=== PATIENT | male | born 1950 | race Two or more races ===

== ENCOUNTER 2019-08-01 23:42 | Inpatient (IN) | payer MEDICAID, MEDICARE ==
[~2019-08-01] VITALS: Ht 165.1 cm; Wt 70.3 kg
[2019-08-02] VITALS (21 sets, daily range): BP systolic 74–187; BP diastolic 34–100
[2019-08-02] MEDS ORDERED: CALC667T6 PO (00:07)
[2019-08-02] MEDS ORDERED: NAPR-1164 PO (00:07)
[2019-08-02] MEDS ORDERED: FERR325T28 PO (00:07)
[2019-08-02] MEDS ORDERED: FLUO-120 PO (00:07)
[2019-08-02] MEDS ORDERED: CEPH-570 PO (00:07)
[2019-08-02] MEDS ORDERED: CLON0.1T PO (00:07)
[2019-08-02] MEDS ORDERED: AMLO10TA7 PO (00:07)
[2019-08-02] MEDS ORDERED: ATOR20TA PO (00:07)
[2019-08-02] MEDS ORDERED: ATEN50TA PO (00:07)
[2019-08-02] MEDS ORDERED: DICYCLOMINE HCL 20 MG/2 ML AMPUL IM SCH (00:15)
[2019-08-02] MEDS ORDERED: IV NORMAL SALINE 1000 ML BAG IV ONE (00:15)
[2019-08-02] MEDS ORDERED: ONDANSETRON 4 MG/2 ML VIAL IV ONE (00:15)
[2019-08-02 00:26] LABS: BASOPHILS # (AUTO) 0.1 K/uL (0.0-8.0); NEUTROPHILS # (AUTO) 5.8 K/uL (1.8-8.9); WHITE BLOOD COUNT (AUTO) 13.8 K/uL (3.6-10.2)
[2019-08-02 00:28] LABS: BASOPHILS % (AUTO) 0.6 % (0.0-2.0); EOSINOPHILS # (AUTO) 0.2 K/uL (0.0-0.7); EOSINOPHILS % (AUTO) 1.1 % (0.0-7.0); LYMPHOCYTES # (AUTO) 6.6 K/uL (20.0-40.0); LYMPHOCYTES % (AUTO) 47.7 % (20.5-51.5); MEAN CORPUSCULAR HGB CONC 32 g/dL (32.5-36.3); MEAN CORPUSCULAR VOLUME 98.6 fL (73.0-96.2); MONOCYTES # (AUTO) 1.2 K/uL (2.0-10.0); MONOCYTES % (AUTO) 8.5 % (0.0-11.0); NEUTROPHILS % (AUTO) 42.1 % (38.5-71.5); PLATELET COUNT (AUTO) 88 K/uL (152-348)
[2019-08-02 00:30] LABS: *OCCULT BLOOD STOOL POSITIVE (NEGATIVE)
[2019-08-02 00:34] LABS: RED BLOOD CELL COUNT(AUTO) 1.43 MIL/uL (4.06-5.63)
[2019-08-02 00:35] LABS: HEMOGLOBIN 4.6 g/dL (12.5-16.3)
[2019-08-02 00:36] LABS: HEMATOCRIT 14.1 % (36.7-47.1)
[2019-08-02 00:46] LABS: BILIRUBIN,DIRECT 0.3 mg/dL (0.0-0.2); BILIRUBIN,TOTAL 1.1 mg/dL (0.2-1.0); CREATININE 7.6 mg/dL (0.6-1.3); TOTAL PROTEIN, SERUM 5.6 g/dL (6.4-8.2)
[2019-08-02 00:49] LABS: POTASSIUM 7.2 mmol/L (3.5-5.1)
[2019-08-02] MEDS ORDERED: SODIUM BICARBONATE 8.4% 50 MEQ/50 ML DISP.SYRIN IV ONE ×2 (01:00→01:35)
[2019-08-02] MEDS ORDERED: FUROSEMIDE 20 MG/2 ML VIAL IVP ONE (01:00)
[2019-08-02] MEDS ORDERED: SODIUM POLYSTYRENE SULFONATE 15 G/60 ML LIQUID UDC PO ONE (01:00)
[2019-08-02] MEDS ORDERED: METOCLOPRAMIDE HCL 10 MG/2 ML VIAL ONE (01:06)
[2019-08-02 01:07] LABS: *BILIRUBIN,URIN 1+ (NEGATIVE); *BLOOD, URINE NEGATIVE (NEGATIVE); *CLARITY,URINE CLEAR (CLEAR); *COLOR,URINE YELLOW (YELLOW); *KETONES,URINE NEGATIVE (NEGATIVE); *UROBILINOGEN,URINE 0.2 E.U./dl (NORMAL); LEUKOCYTE ESTERASE ,URINE TRACE (NEGATIVE); NITRITE, URINE POSITIVE (NEGATIVE); PH,URINE >=9.0 (5.0-8.0); UGLUCOSE NEGATIVE (NEGATIVE)
[2019-08-02] MEDS ORDERED: INSULIN REGULAR, HUMAN 300 UNIT/3 ML VIAL IV ONE (01:15)
[2019-08-02] MEDS ORDERED: METOCLOPRAMIDE HCL 10 MG/2 ML VIAL IM ONE (01:15)
[2019-08-02] MEDS ORDERED: DEXTROSE 50% 50 ML DISP.SYRIN IV ONE (01:15)
[2019-08-02 01:24] LABS: BACTERIA,URINE MANY /HPF (NONE SEEN); RBC,URINE NONE SEEN /HPF (0-3); SQUAMOUS EPITHELIAL CELL,UR NONE SEEN /HPF (NONE SEEN); TRIPLE PHOSPHATE CRYSTAL,UR MANY /HPF (NONE SEEN)
[2019-08-02] MEDS ORDERED: Z GUARD REMEDY PASTE 57 GM TUBE TOP PRN (01:30)
[2019-08-02] MEDS ORDERED: PANTOPRAZOLE SODIUM IV 80 MG in IV DEXTROSE 5% 100 ML IV ONE (01:30)
[2019-08-02] MEDS ORDERED: ACETAMINOPHEN 325 MG TABLET PO PRN (01:30)
[2019-08-02] MEDS ORDERED: MAGNESIUM HYDROXIDE 30 ML LIQUID UDC PO PRN (01:30)
[2019-08-02] MEDS ORDERED: ONDANSETRON 4 MG/2 ML VIAL IV PRN (01:30)
[2019-08-02] MEDS ORDERED: PANTOPRAZOLE SODIUM 40 MG VIAL ONE (01:34)
[2019-08-02] MEDS ORDERED: FUROSEMIDE 40 MG/4 ML VIAL ONE (01:34)
[2019-08-02] MEDS ORDERED: DEXTROSE 50% 50 ML DISP.SYRIN ONE (01:35)
[2019-08-02] MEDS ORDERED: SODIUM POLYSTYRENE SULF POWDER 15 GM UDC ONE (01:35)
[2019-08-02] MEDS ORDERED: DICYCLOMINE HCL LIQ 10 MG/5 ML UDC ONE (01:35)
[2019-08-02] MEDS ORDERED: INSULIN REGULAR, HUMAN 300 UNIT/3 ML VIAL ONE (01:35)
[2019-08-02 02:06] LABS: BAND % (MANUAL) 1 % (0-10); LYMPHOCYTES % (MANUAL) 41 % (20-40); MONOCYTES % (MANUAL) 3 % (2-10); NEUTROPHILS % (MANUAL) 55 % (42-75)
[2019-08-02] MEDS ORDERED: DICYCLOMINE HCL LIQ 10 MG/5 ML UDC PO ONE (02:15)
[2019-08-02] MEDS ORDERED: LEVOFLOXACIN 500 MG/D5W 100ML PIGGYBACK IV ONE (02:30)
[2019-08-02] MEDS ORDERED: LEVOFLOXACIN 500 MG/D5W 100 ML ONE (02:40)
[2019-08-02] MEDS ORDERED: HYDROMORPHONE 1 MG/1 ML DISP.SYRIN ONE (03:44)
[2019-08-02] MEDS ORDERED: HYDROMORPHONE 1 MG/1 ML DISP.SYRIN IV ONE (03:45)
[2019-08-02 03:49] LABS: BASOPHILS # (AUTO) 0.1 K/uL (0.0-8.0); EOSINOPHILS # (AUTO) 0.1 K/uL (0.0-0.7); MEAN CORPUSCULAR VOLUME 98.2 fL (73.0-96.2); NEUTROPHILS # (AUTO) 5.7 K/uL (1.8-8.9)
[2019-08-02 03:51] LABS: BASOPHILS % (AUTO) 0.5 % (0.0-2.0); EOSINOPHILS % (AUTO) 0.5 % (0.0-7.0); LYMPHOCYTES # (AUTO) 5.5 K/uL (20.0-40.0); LYMPHOCYTES % (AUTO) 44.7 % (20.5-51.5); MEAN CORPUSCULAR HEMOGLOBIN 31.2 uug (23.8-33.4); MEAN CORPUSCULAR HGB CONC 32 g/dL (32.5-36.3); MONOCYTES % (AUTO) 7.8 % (0.0-11.0); NEUTROPHILS % (AUTO) 46.5 % (38.5-71.5); PLATELET COUNT (AUTO) 67 K/uL (152-348); RED BLOOD CELL COUNT(AUTO) 1.14 MIL/uL (4.06-5.63); WHITE BLOOD COUNT (AUTO) 12.3 K/uL (3.6-10.2)
[2019-08-02 03:53] LABS: HEMATOCRIT 11.2 % (36.7-47.1); HEMOGLOBIN 3.6 g/dL (12.5-16.3)
[2019-08-02 03:59] LABS: POTASSIUM 5.3 mmol/L (3.5-5.1)
[2019-08-02 04:03] LABS: CREATININE 7.7 mg/dL (0.6-1.3)
[2019-08-02] MEDS ORDERED: PROPOFOL 200 MG/20 ML BOTTLE IV ONE (06:38)
[2019-08-02] MEDS ORDERED: LIDOCAINE-MPF 2% 5 ML VIAL MC ONE (06:38)
[2019-08-02] MEDS ORDERED: SIMETHICONE 40 MG/0.6 ML, 30ML BOTTLE MC ONE (06:38)
[2019-08-02] MEDS: PANTOPRAZOLE SODIUM 40 MG VIAL IV SCH ×2 (10:16→17:03)
[2019-08-02] MEDS ORDERED: DEXTROSE 50% 50 ML DISP.SYRIN IV PRN (12:00)
[2019-08-02] MEDS: BLOOD SUGAR DIAGNOSTIC 1 EACH STRIP VI SCH ×2 (12:37→17:35)
[2019-08-02] MEDS ORDERED: CEFTRIAXONE 1 G in IV DEXTROSE 5% 50 ML IV SCH (13:00)
[2019-08-02] MEDS ORDERED: FENTANYL CITRATE 100 MCG/2 ML AMPUL ONE (13:12)
[2019-08-02 13:24] LABS: MONOCYTES # (AUTO) 1.2 K/uL (2.0-10.0); PLATELET COUNT (AUTO) 80 K/uL (152-348)
[2019-08-02] MEDS: OCTREOTIDE ACETATE DRIP 1,250 MCG in IV NORMAL SALINE 247.5 ML IV PRN (13:26)
[2019-08-02 13:30] LABS: BASOPHILS % (AUTO) 0.4 % (0.0-2.0); EOSINOPHILS % (AUTO) 0.3 % (0.0-7.0); LYMPHOCYTES # (AUTO) 3.2 K/uL (20.0-40.0); LYMPHOCYTES % (AUTO) 33.3 % (20.5-51.5); MEAN CORPUSCULAR HEMOGLOBIN 29.6 uug (23.8-33.4); MEAN CORPUSCULAR HGB CONC 34 g/dL (32.5-36.3); MEAN CORPUSCULAR VOLUME 87.9 fL (73.0-96.2); MONOCYTES % (AUTO) 12.4 % (0.0-11.0); NEUTROPHILS # (AUTO) 5.1 K/uL (1.8-8.9); NEUTROPHILS % (AUTO) 53.6 % (38.5-71.5); RED BLOOD CELL COUNT(AUTO) 2.78 MIL/uL (4.06-5.63); WHITE BLOOD COUNT (AUTO) 9.6 K/uL (3.6-10.2)
[2019-08-02 13:31] LABS: HEMATOCRIT 24.4 % (36.7-47.1); HEMOGLOBIN 8.2 g/dL (12.5-16.3)
[2019-08-02 13:42] LABS: BILIRUBIN,TOTAL 0.9 mg/dL (0.2-1.0); CREATININE 4.3 mg/dL (0.6-1.3); POTASSIUM 4.4 mmol/L (3.5-5.1); TOTAL PROTEIN, SERUM 4.9 g/dL (6.4-8.2)
[2019-08-02 14:07] LABS: IRON, SERUM 167 ug/dL (50-175)
[2019-08-02 14:51] LABS: FERRITIN > 2000 ng/mL (26-388)
[2019-08-02] MEDS ORDERED: IV NS 1000 ML 1,000 ML IV PRN (16:15)
[2019-08-02] MEDS: SUCRALFATE 1 G TABLET PO SCH ×2 (17:00→21:13)
[2019-08-02] MEDS: AMLODIPINE 10 MG TABLET PO SCH (18:22)
[2019-08-02] MEDS: ATENOLOL 50 MG TABLET PO SCH (18:23)
[2019-08-02] MEDS: LEVOFLOXACIN 250MG /D5W 250 MG in PREMIXED 1 EACH IV SCH (20:39)
[2019-08-02] MEDS ORDERED: VANCOMYCIN IV 1,000 MG in IV DEXTROSE 5% 250 ML IV ONE (21:00)
[2019-08-02] MEDS: ATORVASTATIN 20 MG TABLET PO SCH (21:47)
[2019-08-02] MEDS: CLONIDINE HCL 0.1 MG TABLET PO SCH (22:07)
[2019-08-03] VITALS (16 sets, daily range): BP systolic 14–149; BP diastolic 46–85
[2019-08-03] MEDS: BLOOD SUGAR DIAGNOSTIC 1 EACH STRIP VI SCH ×4 (00:29→17:24)
[2019-08-03] MEDS ORDERED: INSULIN REGULAR, HUMAN 300 UNIT/3 ML VIAL ONE (00:44)
[2019-08-03] MEDS: INSULIN REGULAR, HUMAN 300 UNIT/3 ML VIAL SQ PRN ×3 (00:49→17:01)
[2019-08-03 05:03] LABS: EOSINOPHILS # (AUTO) 0.2 K/uL (0.0-0.7); MEAN CORPUSCULAR HGB CONC 33 g/dL (32.5-36.3); MONOCYTES # (AUTO) 1.1 K/uL (2.0-10.0)
[2019-08-03 05:06] LABS: BASOPHILS # (AUTO) 0.1 K/uL (0.0-8.0); BASOPHILS % (AUTO) 0.6 % (0.0-2.0); HEMATOCRIT 21.4 % (36.7-47.1); LYMPHOCYTES # (AUTO) 4.3 K/uL (20.0-40.0); LYMPHOCYTES % (AUTO) 44.8 % (20.5-51.5); MONOCYTES % (AUTO) 11.9 % (0.0-11.0); NEUTROPHILS # (AUTO) 3.9 K/uL (1.8-8.9); NEUTROPHILS % (AUTO) 40.7 % (38.5-71.5); PLATELET COUNT (AUTO) 79 K/uL (152-348); WHITE BLOOD COUNT (AUTO) 9.6 K/uL (3.6-10.2)
[2019-08-03 05:16] LABS: HEMOGLOBIN 7.1 g/dL (12.5-16.3); RED BLOOD CELL COUNT(AUTO) 2.46 MIL/uL (4.06-5.63)
[2019-08-03 05:19] LABS: CREATININE 5.4 mg/dL (0.6-1.3); MAGNESIUM 2.1 mg/dL (1.8-2.4); PHOSPHOROUS 4.6 mg/dL (2.5-4.9); POTASSIUM 4.5 mmol/L (3.5-5.1)
[2019-08-03 05:24] LABS: THYROID STIMULATING HORMONE 3.77 mIU/mL (0.358-3.740)
[2019-08-03 06:06] LABS: HEPATITIS B SURFACE AG Negative (Negative)
[2019-08-03] MEDS: SUCRALFATE 1 G TABLET PO SCH ×4 (07:56→20:47)
[2019-08-03] MEDS: CLONIDINE HCL 0.1 MG TABLET PO SCH (08:03)
[2019-08-03] MEDS: PANTOPRAZOLE SODIUM 40 MG VIAL IV SCH ×2 (08:03→16:57)
[2019-08-03] MEDS: ATENOLOL 50 MG TABLET PO SCH ×2 (08:04→16:55)
[2019-08-03] MEDS: AMLODIPINE 10 MG TABLET PO SCH (08:05)
[2019-08-03] MEDS: FERROUS SULFATE 325 MG TABEC PO SCH (08:09)
[2019-08-03] MEDS: FLUOXETINE HCL 20 MG CAPSULE PO SCH (08:10)
[2019-08-03] MEDS: CALCIUM ACETATE 667 MG CAPSULE PO SCH ×3 (08:10→17:02)
[2019-08-03] MEDS ORDERED: AMLODIPINE 10 MG TABLET PO SCH (09:00)
[2019-08-03] MEDS ORDERED: ATENOLOL 50 MG TABLET PO SCH (09:00)
[2019-08-03] MEDS: OCTREOTIDE ACETATE DRIP 1,250 MCG in IV NORMAL SALINE 247.5 ML IV PRN (12:02)
[2019-08-03] MEDS ORDERED: VANCOMYCIN IV 1,000 MG in IV DEXTROSE 5% 250 ML IV ONE (14:30)
[2019-08-03 15:52] LABS: HEMATOCRIT 21.2 % (36.7-47.1)
[2019-08-03] MEDS: IV NORMAL SALINE 250 ML IV PRN (17:39)
[2019-08-03] MEDS: ATORVASTATIN 20 MG TABLET PO SCH (20:47)
[2019-08-04] VITALS (17 sets, daily range): BP systolic 118–164; BP diastolic 51–76
[2019-08-04] MEDS: BLOOD SUGAR DIAGNOSTIC 1 EACH STRIP VI SCH ×5 (00:10→23:44)
[2019-08-04 05:08] LABS: BASOPHILS % (AUTO) 0.5 % (0.0-2.0); EOSINOPHILS # (AUTO) 0.3 K/uL (0.0-0.7); LYMPHOCYTES # (AUTO) 4.6 K/uL (20.0-40.0)
[2019-08-04 05:10] LABS: EOSINOPHILS % (AUTO) 2.7 % (0.0-7.0); LYMPHOCYTES % (AUTO) 47.1 % (20.5-51.5); MEAN CORPUSCULAR HEMOGLOBIN 29.5 uug (23.8-33.4); MEAN CORPUSCULAR HGB CONC 33 g/dL (32.5-36.3); MEAN CORPUSCULAR VOLUME 88.6 fL (73.0-96.2); MONOCYTES % (AUTO) 10.5 % (0.0-11.0); NEUTROPHILS # (AUTO) 3.8 K/uL (1.8-8.9); NEUTROPHILS % (AUTO) 39.2 % (38.5-71.5); PLATELET COUNT (AUTO) 64 K/uL (152-348); WHITE BLOOD COUNT (AUTO) 9.7 K/uL (3.6-10.2)
[2019-08-04] MEDS: IV NORMAL SALINE 250 ML IV PRN (05:32)
[2019-08-04 05:36] LABS: HEMATOCRIT 20.8 % (36.7-47.1); RED BLOOD CELL COUNT(AUTO) 2.35 MIL/uL (4.06-5.63)
[2019-08-04 05:37] LABS: HEMOGLOBIN 6.9 g/dL (12.5-16.3)
[2019-08-04 05:48] LABS: POTASSIUM 4.2 mmol/L (3.5-5.1)
[2019-08-04 05:49] LABS: CREATININE 4.2 mg/dL (0.6-1.3); MAGNESIUM 1.9 mg/dL (1.8-2.4); PHOSPHOROUS 3.5 mg/dL (2.5-4.9)
[2019-08-04 06:44] LABS: BAND % (MANUAL) 1 % (0-10); EOSINOPHILS % (MANUAL) 4 % (0-8); LYMPHOCYTES % (MANUAL) 42 % (20-40); MONOCYTES % (MANUAL) 12 % (2-10); NEUTROPHILS % (MANUAL) 41 % (42-75)
[2019-08-04] MEDS: PANTOPRAZOLE SODIUM 40 MG VIAL IV SCH ×2 (08:43→17:09)
[2019-08-04] MEDS: CALCIUM ACETATE 667 MG CAPSULE PO SCH ×3 (08:43→17:09)
[2019-08-04] MEDS: SUCRALFATE 1 G TABLET PO SCH ×4 (08:43→21:34)
[2019-08-04] MEDS: FERROUS SULFATE 325 MG TABEC PO SCH (08:44)
[2019-08-04] MEDS: FLUOXETINE HCL 20 MG CAPSULE PO SCH (08:44)
[2019-08-04] MEDS: ATENOLOL 50 MG TABLET PO SCH ×2 (08:45→17:10)
[2019-08-04] MEDS: AMLODIPINE 10 MG TABLET PO SCH (08:45)
[2019-08-04] MEDS: CLONIDINE HCL 0.1 MG TABLET PO SCH (08:45)
[2019-08-04] MEDS: INSULIN REGULAR, HUMAN 300 UNIT/3 ML VIAL SQ PRN (12:27)
[2019-08-04 13:11] LABS: BASOPHILS # (AUTO) 0.1 K/uL (0.0-8.0); BASOPHILS % (AUTO) 0.6 % (0.0-2.0); EOSINOPHILS # (AUTO) 0.2 K/uL (0.0-0.7); EOSINOPHILS % (AUTO) 2.5 % (0.0-7.0); HEMATOCRIT 22.1 % (36.7-47.1); LYMPHOCYTES # (AUTO) 3.5 K/uL (20.0-40.0); LYMPHOCYTES % (AUTO) 39.3 % (20.5-51.5); MEAN CORPUSCULAR HGB CONC 33 g/dL (32.5-36.3); MEAN CORPUSCULAR VOLUME 90.5 fL (73.0-96.2); MONOCYTES # (AUTO) 0.9 K/uL (2.0-10.0); MONOCYTES % (AUTO) 10.4 % (0.0-11.0); NEUTROPHILS # (AUTO) 4.2 K/uL (1.8-8.9); NEUTROPHILS % (AUTO) 47.2 % (38.5-71.5); PLATELET COUNT (AUTO) 88 K/uL (152-348); WHITE BLOOD COUNT (AUTO) 8.9 K/uL (3.6-10.2)
[2019-08-04 13:12] LABS: HEMOGLOBIN 7.3 g/dL (12.5-16.3); RED BLOOD CELL COUNT(AUTO) 2.44 MIL/uL (4.06-5.63)
[2019-08-04 17:31] LABS: BILIRUBIN,DIRECT 0.1 mg/dL (0.0-0.2); BILIRUBIN,TOTAL 0.6 mg/dL (0.2-1.0)
[2019-08-04] MEDS: LEVOFLOXACIN 250MG /D5W 250 MG in PREMIXED 1 EACH IV SCH (20:56)
[2019-08-04] MEDS: ATORVASTATIN 20 MG TABLET PO SCH (21:33)
[2019-08-05] VITALS (24 sets, daily range): BP systolic 102–152; BP diastolic 37–85
[2019-08-05 04:37] LABS: BILIRUBIN,TOTAL 0.6 mg/dL (0.2-1.0); CREATININE 5.2 mg/dL (0.6-1.3); MAGNESIUM 1.8 mg/dL (1.8-2.4); PHOSPHOROUS 4.3 mg/dL (2.5-4.9); POTASSIUM 5.2 mmol/L (3.5-5.1); TOTAL PROTEIN, SERUM 4.4 g/dL (6.4-8.2)
[2019-08-05 05:09] LABS: BASOPHILS # (AUTO) 0.1 K/uL (0.0-8.0); BASOPHILS % (AUTO) 0.5 % (0.0-2.0); MONOCYTES # (AUTO) 1.2 K/uL (2.0-10.0); NEUTROPHILS # (AUTO) 4.6 K/uL (1.8-8.9)
[2019-08-05 05:11] LABS: EOSINOPHILS # (AUTO) 0.3 K/uL (0.0-0.7); EOSINOPHILS % (AUTO) 2.3 % (0.0-7.0); LYMPHOCYTES # (AUTO) 5.4 K/uL (20.0-40.0); LYMPHOCYTES % (AUTO) 47.2 % (20.5-51.5); MEAN CORPUSCULAR HEMOGLOBIN 29.9 uug (23.8-33.4); MEAN CORPUSCULAR HGB CONC 34 g/dL (32.5-36.3); MEAN CORPUSCULAR VOLUME 89.4 fL (73.0-96.2); MONOCYTES % (AUTO) 10.3 % (0.0-11.0); NEUTROPHILS % (AUTO) 39.7 % (38.5-71.5); PLATELET COUNT (AUTO) 87 K/uL (152-348); WHITE BLOOD COUNT (AUTO) 11.5 K/uL (3.6-10.2)
[2019-08-05 05:13] LABS: RED BLOOD CELL COUNT(AUTO) 1.86 MIL/uL (4.06-5.63)
[2019-08-05 05:14] LABS: HEMATOCRIT 16.6 % (36.7-47.1); HEMOGLOBIN 5.6 g/dL (12.5-16.3)
[2019-08-05] MEDS: BLOOD SUGAR DIAGNOSTIC 1 EACH STRIP VI SCH ×3 (06:04→18:25)
[2019-08-05 06:06] LABS: EOSINOPHILS % (MANUAL) 1 % (0-8); LYMPHOCYTES % (MANUAL) 48 % (20-40); METAMYELOCYTES % 2 % (0-1); MONOCYTES % (MANUAL) 2 % (2-10); MYELOCYTES % 1 % (0-0); NEUTROPHILS % (MANUAL) 42 % (42-75); PROMYELOCYTES % 1 %
[2019-08-05] MEDS: SUCRALFATE 1 G TABLET PO SCH ×4 (08:48→20:32)
[2019-08-05] MEDS: FLUOXETINE HCL 20 MG CAPSULE PO SCH (08:49)
[2019-08-05] MEDS: PANTOPRAZOLE SODIUM 40 MG VIAL IV SCH ×2 (08:49→17:32)
[2019-08-05] MEDS: CALCIUM ACETATE 667 MG CAPSULE PO SCH ×3 (08:53→18:00)
[2019-08-05] MEDS: FERROUS SULFATE 325 MG TABEC PO SCH (08:58)
[2019-08-05] MEDS: CLONIDINE HCL 0.1 MG TABLET PO SCH (09:00)
[2019-08-05] MEDS: AMLODIPINE 10 MG TABLET PO SCH (09:00)
[2019-08-05] MEDS: ATENOLOL 50 MG TABLET PO SCH ×2 (09:00→17:33)
[2019-08-05] MEDS: OCTREOTIDE ACETATE DRIP 1,250 MCG in IV NORMAL SALINE 247.5 ML IV PRN (11:03)
[2019-08-05] MEDS ORDERED: FLEET ENEMA 133 ML BOTTLE RC STA (13:03)
[2019-08-05] MEDS ORDERED: MAGNESIUM CITRATE 296 ML BOTTLE PO STA (13:03)
[2019-08-05] MEDS ORDERED: GOLYTELY 4000 ML BOTTLE PO STA (13:03)
[2019-08-05 14:53] LABS: HEMATOCRIT 21.2 % (36.7-47.1)
[2019-08-05 14:54] LABS: HEMOGLOBIN 7.1 g/dL (12.5-16.3)
[2019-08-05] MEDS ORDERED: Z GUARD REMEDY PASTE 57 GM TUBE TOP PRN (20:15)
[2019-08-05] MEDS: ATORVASTATIN 20 MG TABLET PO SCH (20:32)
[2019-08-05] MEDS: Z GUARD REMEDY PASTE 57 GM TUBE TOP SCH (20:55)
[2019-08-05 22:36] LABS: HEMOGLOBIN 5.6 g/dL (12.5-16.3)
[2019-08-05 22:37] LABS: HEMATOCRIT 16.5 % (36.7-47.1)
[2019-08-05] MEDS ORDERED: PHYTONADIONE 10 MG/1 ML AMPUL SQ ONE (23:45)
[2019-08-06] VITALS (26 sets, daily range): BP systolic 110–141; BP diastolic 54–86
[2019-08-06] MEDS: BLOOD SUGAR DIAGNOSTIC 1 EACH STRIP VI SCH ×4 (00:33→18:19)
[2019-08-06 05:07] LABS: BASOPHILS % (AUTO) 0.4 % (0.0-2.0); EOSINOPHILS # (AUTO) 0.1 K/uL (0.0-0.7)
[2019-08-06 05:09] LABS: EOSINOPHILS % (AUTO) 1.1 % (0.0-7.0); HEMATOCRIT 21.5 % (36.7-47.1); LYMPHOCYTES # (AUTO) 4.2 K/uL (20.0-40.0); LYMPHOCYTES % (AUTO) 45.1 % (20.5-51.5); MEAN CORPUSCULAR HEMOGLOBIN 30.2 uug (23.8-33.4); MEAN CORPUSCULAR HGB CONC 34 g/dL (32.5-36.3); MEAN CORPUSCULAR VOLUME 89.4 fL (73.0-96.2); MONOCYTES # (AUTO) 1.2 K/uL (2.0-10.0); MONOCYTES % (AUTO) 12.6 % (0.0-11.0); NEUTROPHILS # (AUTO) 3.8 K/uL (1.8-8.9); NEUTROPHILS % (AUTO) 40.8 % (38.5-71.5); PLATELET COUNT (AUTO) 92 K/uL (152-348); WHITE BLOOD COUNT (AUTO) 9.3 K/uL (3.6-10.2)
[2019-08-06 05:15] LABS: HEMOGLOBIN 7.3 g/dL (12.5-16.3); RED BLOOD CELL COUNT(AUTO) 2.41 MIL/uL (4.06-5.63)
[2019-08-06 05:26] LABS: CREATININE 4.3 mg/dL (0.6-1.3); MAGNESIUM 1.8 mg/dL (1.8-2.4); PHOSPHOROUS 5.6 mg/dL (2.5-4.9); POTASSIUM 5.1 mmol/L (3.5-5.1)
[2019-08-06] MEDS ORDERED: FENTANYL CITRATE 100 MCG/2 ML AMPUL ONE (06:07)
[2019-08-06] MEDS ORDERED: EPINEPHRINE 1 MG/1 ML AMP ONE (07:02)
[2019-08-06] MEDS ORDERED: EPINEPHRINE 1:10,000 1 MG/10 ML DISP.SYRIN ONE (07:02)
[2019-08-06 07:07] LABS: *IMMUNOGLOBULIN G, SERUM 888 mg/dL (700-1600); AFP, TUMOR MARKER 1.6 ng/mL (0.0-8.3); IMMUNOGLOBULIN A, SERUM 84 mg/dL (61-437); IMMUNOGLOBULIN M, SERUM 64 mg/dL (20-172)
[2019-08-06] MEDS: SUCRALFATE 1 G TABLET PO SCH ×4 (07:30→20:35)
[2019-08-06] MEDS ORDERED: IRR STERIL WATER FOR IRR 1000 ML BOTTLE IR ONE ×2 (07:38)
[2019-08-06] MEDS ORDERED: GLUCAGON,HUMAN RECOMBINANT 1 MG VIAL IM ONE (07:38)
[2019-08-06] MEDS ORDERED: PROPOFOL 200 MG/20 ML BOTTLE IV ONE (07:38)
[2019-08-06] MEDS ORDERED: SIMETHICONE 40 MG/0.6 ML, 30ML BOTTLE MC ONE (07:38)
[2019-08-06] MEDS ORDERED: IV NORMAL SALINE 1000 ML BAG IV ONE (07:38)
[2019-08-06] MEDS: CALCIUM ACETATE 667 MG CAPSULE PO SCH ×3 (08:00→18:00)
[2019-08-06] MEDS: FLUOXETINE HCL 20 MG CAPSULE PO SCH (09:00)
[2019-08-06] MEDS: FERROUS SULFATE 325 MG TABEC PO SCH (09:00)
[2019-08-06] MEDS: CLONIDINE HCL 0.1 MG TABLET PO SCH (09:00)
[2019-08-06] MEDS: ATENOLOL 50 MG TABLET PO SCH ×2 (09:00→17:48)
[2019-08-06] MEDS: AMLODIPINE 10 MG TABLET PO SCH (09:00)
[2019-08-06] MEDS: PANTOPRAZOLE SODIUM 40 MG VIAL IV SCH ×2 (09:08→17:47)
[2019-08-06] MEDS: Z GUARD REMEDY PASTE 57 GM TUBE TOP SCH ×2 (09:08→20:39)
[2019-08-06] MEDS: OCTREOTIDE ACETATE DRIP 1,250 MCG in IV NORMAL SALINE 247.5 ML IV PRN (11:37)
[2019-08-06 12:06] LABS: A/G RATIO 1.1 (0.7-1.7); ALBUMIN 2.6 g/dL (2.9-4.4); ALPHA-1-GLOBULIN 0.3 g/dL (0.0-0.4); ALPHA-2-GLOBULIN 0.7 g/dL (0.4-1.0); BETA GLOBULIN 0.6 g/dL (0.7-1.3); GAMMA GLOBULIN 0.8 g/dL (0.4-1.8); GLOBULIN, TOTAL 2.4 g/dL (2.2-3.9); M-SPIKE Not Observed g/dL (Not Observed)
[2019-08-06] MEDS: ATORVASTATIN 20 MG TABLET PO SCH (20:35)
[2019-08-06] MEDS: LEVOFLOXACIN 250MG /D5W 250 MG in PREMIXED 1 EACH IV SCH (20:37)
[2019-08-07] VITALS (21 sets, daily range): BP systolic 114–155; BP diastolic 35–74
[2019-08-07] MEDS: BLOOD SUGAR DIAGNOSTIC 1 EACH STRIP VI SCH ×5 (00:47→23:58)
[2019-08-07 05:09] LABS: EOSINOPHILS # (AUTO) 0.2 K/uL (0.0-0.7); MEAN CORPUSCULAR VOLUME 90.9 fL (73.0-96.2)
[2019-08-07 05:11] LABS: BASOPHILS % (AUTO) 0.1 % (0.0-2.0); EOSINOPHILS % (AUTO) 2.3 % (0.0-7.0); LYMPHOCYTES % (AUTO) 41.3 % (20.5-51.5); MEAN CORPUSCULAR HGB CONC 34 g/dL (32.5-36.3); MONOCYTES # (AUTO) 1.3 K/uL (2.0-10.0); MONOCYTES % (AUTO) 13.2 % (0.0-11.0); NEUTROPHILS # (AUTO) 4.1 K/uL (1.8-8.9); NEUTROPHILS % (AUTO) 43.1 % (38.5-71.5); PLATELET COUNT (AUTO) 81 K/uL (152-348); WHITE BLOOD COUNT (AUTO) 9.6 K/uL (3.6-10.2)
[2019-08-07 05:18] LABS: BILIRUBIN,TOTAL 0.5 mg/dL (0.2-1.0); CREATININE 5.4 mg/dL (0.6-1.3); MAGNESIUM 1.9 mg/dL (1.8-2.4); PHOSPHOROUS 5.3 mg/dL (2.5-4.9); POTASSIUM 4.9 mmol/L (3.5-5.1); TOTAL PROTEIN, SERUM 4.3 g/dL (6.4-8.2)
[2019-08-07 05:20] LABS: HEMATOCRIT 18.2 % (36.7-47.1); HEMOGLOBIN 6.2 g/dL (12.5-16.3)
[2019-08-07 06:06] LABS: EOSINOPHILS % (MANUAL) 2 % (0-8); LYMPHOCYTES % (MANUAL) 46 % (20-40); MONOCYTES % (MANUAL) 13 % (2-10); NEUTROPHILS % (MANUAL) 39 % (42-75)
[2019-08-07] MEDS: PANTOPRAZOLE SODIUM 40 MG VIAL IV SCH ×2 (08:27→17:05)
[2019-08-07] MEDS: SUCRALFATE 1 G TABLET PO SCH ×4 (08:27→20:37)
[2019-08-07] MEDS: CALCIUM ACETATE 667 MG CAPSULE PO SCH ×3 (08:27→17:05)
[2019-08-07] MEDS: FERROUS SULFATE 325 MG TABEC PO SCH (08:28)
[2019-08-07] MEDS: AMLODIPINE 10 MG TABLET PO SCH (08:28)
[2019-08-07] MEDS: CLONIDINE HCL 0.1 MG TABLET PO SCH (08:28)
[2019-08-07] MEDS: FLUOXETINE HCL 20 MG CAPSULE PO SCH (08:29)
[2019-08-07] MEDS: Z GUARD REMEDY PASTE 57 GM TUBE TOP SCH ×2 (08:30→20:37)
[2019-08-07] MEDS: ATENOLOL 50 MG TABLET PO SCH ×2 (08:30→17:06)
[2019-08-07 10:15] LABS: HEMATOCRIT 20.8 % (36.7-47.1)
[2019-08-07] MEDS: OCTREOTIDE ACETATE DRIP 1,250 MCG in IV NORMAL SALINE 247.5 ML IV PRN (11:25)
[2019-08-07] MEDS: ATORVASTATIN 20 MG TABLET PO SCH (20:37)
[2019-08-07] MEDS: HYDROCODONE/APAP 5-325MG TABLET PO PRN (20:40)
[2019-08-08] VITALS (9 sets, daily range): BP systolic 104–141; BP diastolic 52–96
[2019-08-08] MEDS: SUCRALFATE 1 G TABLET PO SCH ×4 (06:12→21:07)
[2019-08-08] MEDS: BLOOD SUGAR DIAGNOSTIC 1 EACH STRIP VI SCH ×3 (06:12→17:14)
[2019-08-08 06:16] LABS: EOSINOPHILS # (AUTO) 0.2 K/uL (0.0-0.7); LYMPHOCYTES # (AUTO) 3.5 K/uL (20.0-40.0); MONOCYTES # (AUTO) 1.1 K/uL (2.0-10.0)
[2019-08-08 06:19] LABS: BASOPHILS % (AUTO) 0.5 % (0.0-2.0); EOSINOPHILS % (AUTO) 2.9 % (0.0-7.0); LYMPHOCYTES % (AUTO) 42.4 % (20.5-51.5); MEAN CORPUSCULAR HEMOGLOBIN 29.8 uug (23.8-33.4); MEAN CORPUSCULAR HGB CONC 34 g/dL (32.5-36.3); MONOCYTES % (AUTO) 13.3 % (0.0-11.0); NEUTROPHILS # (AUTO) 3.4 K/uL (1.8-8.9); NEUTROPHILS % (AUTO) 40.9 % (38.5-71.5); PLATELET COUNT (AUTO) 73 K/uL (152-348); WHITE BLOOD COUNT (AUTO) 8.3 K/uL (3.6-10.2)
[2019-08-08 06:32] LABS: RED BLOOD CELL COUNT(AUTO) 2.32 MIL/uL (4.06-5.63)
[2019-08-08 06:34] LABS: HEMATOCRIT 20.6 % (36.7-47.1); HEMOGLOBIN 6.9 g/dL (12.5-16.3)
[2019-08-08] MEDS: ATENOLOL 50 MG TABLET PO SCH ×2 (08:12→17:15)
[2019-08-08] MEDS: CALCIUM ACETATE 667 MG CAPSULE PO SCH ×3 (08:12→17:13)
[2019-08-08] MEDS: CLONIDINE HCL 0.1 MG TABLET PO SCH (08:12)
[2019-08-08] MEDS: FERROUS SULFATE 325 MG TABEC PO SCH (08:12)
[2019-08-08] MEDS: Z GUARD REMEDY PASTE 57 GM TUBE TOP SCH ×2 (08:13→20:46)
[2019-08-08] MEDS: PANTOPRAZOLE SODIUM 40 MG VIAL IV SCH ×2 (08:13→17:13)
[2019-08-08] MEDS: FLUOXETINE HCL 20 MG CAPSULE PO SCH (08:13)
[2019-08-08] MEDS: AMLODIPINE 10 MG TABLET PO SCH (08:13)
[2019-08-08] MEDS: OCTREOTIDE ACETATE DRIP 1,250 MCG in IV NORMAL SALINE 247.5 ML IV PRN (11:16)
[2019-08-08] MEDS ORDERED: SILVER NITRATE APPLICATOR STICK EACH TP STA (12:16)
[2019-08-08] MEDS: LEVOFLOXACIN 250MG /D5W 250 MG in PREMIXED 1 EACH IV SCH (19:45)
[2019-08-08] MEDS: IV NORMAL SALINE 250 ML IV PRN (20:20)
[2019-08-08] MEDS: ATORVASTATIN 20 MG TABLET PO SCH (20:45)
[2019-08-08] MEDS: HYDROCODONE/APAP 5-325MG TABLET PO PRN (23:52)
[2019-08-09] VITALS (7 sets, daily range): BP systolic 109–143; BP diastolic 50–81
[2019-08-09] MEDS: BLOOD SUGAR DIAGNOSTIC 1 EACH STRIP VI SCH ×5 (00:01→23:51)
[2019-08-09] MEDS: INSULIN REGULAR, HUMAN 300 UNIT/3 ML VIAL SQ PRN ×3 (02:58→18:10)
[2019-08-09 06:02] LABS: HEMOGLOBIN 7.7 G/DL (14.0-18.0); WHITE BLOOD COUNT (AUTO) 8.1 K/UL (4.0-11.2)
[2019-08-09 06:03] LABS: HEMATOCRIT 22.8 % (40-50); MEAN CORPUSCULAR HEMOGLOBIN 29.6 UUG (27.0-31.0); MEAN CORPUSCULAR HGB CONC 34 g/dL (32.0-37.0); MEAN CORPUSCULAR VOLUME 87.4 FL (82.0-92.0); PLATELET COUNT (AUTO) 66 K/UL (150-450)
[2019-08-09 06:04] LABS: BASOPHILS % (AUTO) 0.6 % (0.0-2.0); EOSINOPHILS % (AUTO) 3.1 % (0.0-7.0); LYMPHOCYTES % (AUTO) 46.3 % (20.5-51.5); MONOCYTES % (AUTO) 11.6 % (0.0-11.0); NEUTROPHILS % (AUTO) 38.4 % (38.5-71.5)
[2019-08-09 06:23] LABS: CREATININE 4.7 mg/dL (0.6-1.3)
[2019-08-09 06:24] LABS: CARBON DIOXIDE 29 mmol/L (21-32); CHLORIDE 108 mmol/L (98-107); GLUCOSE 88 mg/dL (74-106); MAGNESIUM 1.9 mg/dL (1.8-2.4); PHOSPHOROUS 3.8 mg/dL (2.5-4.9); POTASSIUM 4.3 mmol/L (3.5-5.1); UREA NITROGEN, BLOOD 43 mg/dL (7-18)
[2019-08-09] MEDS: SUCRALFATE 1 G TABLET PO SCH ×4 (06:35→21:41)
[2019-08-09 08:06] LABS: *TESTOSTERONE, SERUM 93 ng/dL (264-916)
[2019-08-09] MEDS: PANTOPRAZOLE SODIUM 40 MG VIAL IV SCH (08:55)
[2019-08-09] MEDS: CLONIDINE HCL 0.1 MG TABLET PO SCH (08:56)
[2019-08-09] MEDS: Z GUARD REMEDY PASTE 57 GM TUBE TOP SCH ×2 (08:56→21:41)
[2019-08-09] MEDS: FLUOXETINE HCL 20 MG CAPSULE PO SCH (09:00)
[2019-08-09] MEDS: ATENOLOL 50 MG TABLET PO SCH ×2 (09:18→18:03)
[2019-08-09] MEDS: AMLODIPINE 10 MG TABLET PO SCH (09:18)
[2019-08-09] MEDS: CALCIUM ACETATE 667 MG CAPSULE PO SCH ×3 (09:19→18:04)
[2019-08-09] MEDS: FERROUS SULFATE 325 MG TABEC PO SCH (09:20)
[2019-08-09 12:18] LABS: BAND % (MANUAL) 1 % (0-10); EOSINOPHILS % (MANUAL) 3 % (0-8); LYMPHOCYTES % (MANUAL) 45 % (20-40); METAMYELOCYTES % 1 % (0-1); MONOCYTES % (MANUAL) 13 % (2-10); NEUTROPHILS % (MANUAL) 37 % (42-75)
[2019-08-09] MEDS: ATORVASTATIN 20 MG TABLET PO SCH (21:41)
[2019-08-10 00:01] VITALS: BP 129/62
[2019-08-10] MEDS: HYDROCODONE/APAP 5-325MG TABLET PO PRN ×2 (00:40→20:42)
[2019-08-10 05:35] LABS: RED BLOOD CELL COUNT(AUTO) 2.59 MIL/UL (4.7-6.1); WHITE BLOOD COUNT (AUTO) 7.3 K/UL (4.0-11.2)
[2019-08-10 05:36] LABS: HEMATOCRIT 22.9 % (40-50); HEMOGLOBIN 7.7 G/DL (14.0-18.0); MEAN CORPUSCULAR HEMOGLOBIN 29.6 UUG (27.0-31.0); MEAN CORPUSCULAR HGB CONC 34 g/dL (32.0-37.0); MEAN CORPUSCULAR VOLUME 88.3 FL (82.0-92.0); PLATELET COUNT (AUTO) 59 K/UL (150-450)
[2019-08-10 05:37] LABS: BASOPHILS % (AUTO) 0.9 % (0.0-2.0); EOSINOPHILS # (AUTO) 0.3 K/uL (0.0-0.7); EOSINOPHILS % (AUTO) 3.6 % (0.0-7.0); LYMPHOCYTES # (AUTO) 3.7 K/UL (0.8-4.8); LYMPHOCYTES % (AUTO) 50.5 % (20.5-51.5); MONOCYTES # (AUTO) 0.9 K/UL (0.1-1.30); MONOCYTES % (AUTO) 11.9 % (0.0-11.0); NEUTROPHILS # (AUTO) 2.4 K/UL (1.8-8.9); NEUTROPHILS % (AUTO) 33.1 % (38.5-71.5)
[2019-08-10 05:38] LABS: BASOPHILS # (AUTO) 0.1 K/uL (0.0-8.0)
[2019-08-10] MEDS: BLOOD SUGAR DIAGNOSTIC 1 EACH STRIP VI SCH ×3 (05:46→18:00)
[2019-08-10] MEDS: PANTOPRAZOLE SODIUM 40 MG TABLET.DR PO SCH (05:46)
[2019-08-10] MEDS: SUCRALFATE 1 G TABLET PO SCH ×4 (05:46→20:32)
[2019-08-10 06:17] LABS: CHLORIDE 120 mmol/L (98-107); POTASSIUM 4.3 mmol/L (3.5-5.1)
[2019-08-10 07:02] LABS: CARBON DIOXIDE 30 mmol/L (21-32); GLUCOSE 100 mg/dL (74-106)
[2019-08-10 07:03] LABS: PHOSPHOROUS 3.8 mg/dL (2.5-4.9)
[2019-08-10 07:07] LABS: ALANINE AMINOTRANSFERASE 15 U/L (16-63); ALKALINE PHOSPHATASE 311 U/L (50-136); ASPARTATE AMINOTRANSFERASE 35 U/L (15-37); BILIRUBIN,TOTAL 0.4 mg/dL (0.2-1.0); CREATININE 4.2 mg/dL (0.6-1.3); MAGNESIUM 1.9 mg/dL (1.8-2.4); TOTAL PROTEIN, SERUM 4.8 g/dL (6.4-8.2); UREA NITROGEN, BLOOD 29 mg/dL (7-18)
[2019-08-10 08:00] VITALS: BP 130/68
[2019-08-10] MEDS: CALCIUM ACETATE 667 MG CAPSULE PO SCH ×3 (08:05→17:34)
[2019-08-10] MEDS: FERROUS SULFATE 325 MG TABEC PO SCH (08:05)
[2019-08-10] MEDS: FLUOXETINE HCL 20 MG CAPSULE PO SCH (08:05)
[2019-08-10] MEDS: CLONIDINE HCL 0.1 MG TABLET PO SCH (08:06)
[2019-08-10] MEDS: ATENOLOL 50 MG TABLET PO SCH ×2 (08:06→16:52)
[2019-08-10] MEDS: AMLODIPINE 10 MG TABLET PO SCH (08:06)
[2019-08-10] MEDS: Z GUARD REMEDY PASTE 57 GM TUBE TOP SCH ×2 (08:07→20:32)
[2019-08-10 11:45] VITALS: BP 132/62
[2019-08-10 11:52] VITALS: BP 123/60
[2019-08-10] MEDS: INSULIN REGULAR, HUMAN 300 UNIT/3 ML VIAL SQ PRN (17:56)
[2019-08-10 17:57] VITALS: BP 130/62
[2019-08-10] MEDS: LEVOFLOXACIN 250MG /D5W 250 MG in PREMIXED 1 EACH IV SCH (20:27)
[2019-08-10] MEDS: ATORVASTATIN 20 MG TABLET PO SCH (20:32)
[2019-08-10 20:44] VITALS: BP 115/59
[2019-08-11] MEDS: BLOOD SUGAR DIAGNOSTIC 1 EACH STRIP VI SCH ×5 (00:41→20:09)
[2019-08-11 01:06] VITALS: BP 140/56
[2019-08-11 05:07] VITALS: BP 113/48
[2019-08-11] MEDS: PANTOPRAZOLE SODIUM 40 MG TABLET.DR PO SCH (05:58)
[2019-08-11] MEDS: SUCRALFATE 1 G TABLET PO SCH ×4 (05:58→20:06)
[2019-08-11 06:51] LABS: CARBON DIOXIDE 29 mmol/L (21-32); CHLORIDE 107 mmol/L (98-107); GLUCOSE 88 mg/dL (74-106); POTASSIUM 4.3 mmol/L (3.5-5.1); UREA NITROGEN, BLOOD 35 mg/dL (7-20)
[2019-08-11 06:52] LABS: CREATININE 5.2 mg/dL (0.6-1.3); PHOSPHOROUS 4.4 mg/dL (2.5-4.9)
[2019-08-11 07:28] VITALS: BP 131/63
[2019-08-11 07:37] LABS: HEMOGLOBIN 8.2 G/DL (14.0-18.0); RED BLOOD CELL COUNT(AUTO) 2.74 MIL/UL (4.7-6.1); WHITE BLOOD COUNT (AUTO) 6.7 K/UL (4.0-11.2)
[2019-08-11 07:38] LABS: BASOPHILS % (AUTO) 0.7 % (0.0-2.0); EOSINOPHILS % (AUTO) 3.7 % (0.0-7.0); HEMATOCRIT 24.6 % (40-50); LYMPHOCYTES # (AUTO) 3.1 K/UL (0.8-4.8); LYMPHOCYTES % (AUTO) 46.8 % (20.5-51.5); MEAN CORPUSCULAR HEMOGLOBIN 29.9 UUG (27.0-31.0); MEAN CORPUSCULAR HGB CONC 33 g/dL (32.0-37.0); MEAN CORPUSCULAR VOLUME 89.9 FL (82.0-92.0); MONOCYTES # (AUTO) 0.7 K/UL (0.1-1.30); MONOCYTES % (AUTO) 11.2 % (0.0-11.0); NEUTROPHILS # (AUTO) 2.5 K/UL (1.8-8.9); NEUTROPHILS % (AUTO) 37.6 % (38.5-71.5); PLATELET COUNT (AUTO) 56 K/UL (150-450)
[2019-08-11 07:39] LABS: EOSINOPHILS # (AUTO) 0.2 K/uL (0.0-0.7)
[2019-08-11] MEDS: CALCIUM ACETATE 667 MG CAPSULE PO SCH ×3 (08:31→16:27)
[2019-08-11] MEDS: ATENOLOL 50 MG TABLET PO SCH ×2 (08:32→16:27)
[2019-08-11] MEDS: AMLODIPINE 10 MG TABLET PO SCH (08:32)
[2019-08-11] MEDS: FERROUS SULFATE 325 MG TABEC PO SCH (08:32)
[2019-08-11] MEDS: CLONIDINE HCL 0.1 MG TABLET PO SCH (08:32)
[2019-08-11] MEDS: FLUOXETINE HCL 20 MG CAPSULE PO SCH (08:33)
[2019-08-11] MEDS: Z GUARD REMEDY PASTE 57 GM TUBE TOP SCH ×2 (08:34→20:07)
[2019-08-11] MEDS ORDERED: DEXTROSE 50% 50 ML DISP.SYRIN IV PRN (09:45)
[2019-08-11] MEDS ORDERED: INSULIN REGULAR, HUMAN 300 UNIT/3 ML VIAL SQ PRN (09:45)
[2019-08-11 11:04] VITALS: BP 139/67
[2019-08-11] MEDS ORDERED: EPOETIN ALFA 10,000 UNITS/ML VIAL SQ ONE (15:00)
[2019-08-11 15:08] VITALS: BP 133/71
[2019-08-11] MEDS: IV NORMAL SALINE 250 ML IV PRN (18:29)
[2019-08-11 19:54] VITALS: BP 145/67
[2019-08-11] MEDS: DOXYCYCLINE HYCLATE IV 100 MG in IV DEXTROSE 5% 100 ML IV SCH (20:06)
[2019-08-11] MEDS: ATORVASTATIN 20 MG TABLET PO SCH (20:06)
[2019-08-11] MEDS ORDERED: SULFAMETHOXAZOL/TRIMETHOPRI IV 10 ML in IV DEXTROSE 5% 250 ML IV SCH (22:00)
[2019-08-11] MEDS ORDERED: ALPRAZOLAM 0.5 MG TABLET PO PRN (22:15)
[2019-08-11] MEDS ORDERED: ALBUTEROL SULFATE 2.5 MG/3 ML NEBU NEB PRN (23:30)
[2019-08-12] VITALS (8 sets, daily range): BP systolic 91–147; BP diastolic 49–77
[2019-08-12] MEDS: SUCRALFATE 1 G TABLET PO SCH ×3 (06:32→16:53)
[2019-08-12] MEDS: PANTOPRAZOLE SODIUM 40 MG TABLET.DR PO SCH (06:32)
[2019-08-12] MEDS: BLOOD SUGAR DIAGNOSTIC 1 EACH STRIP VI SCH ×3 (06:36→16:53)
[2019-08-12 07:05] LABS: HEMOGLOBIN 7.7 G/DL (14.0-18.0); RED BLOOD CELL COUNT(AUTO) 2.58 MIL/UL (4.7-6.1); WHITE BLOOD COUNT (AUTO) 7.2 K/UL (4.0-11.2)
[2019-08-12 07:06] LABS: BASOPHILS % (AUTO) 0.8 % (0.0-2.0); EOSINOPHILS % (AUTO) 2.5 % (0.0-7.0); HEMATOCRIT 23.3 % (40-50); MEAN CORPUSCULAR HEMOGLOBIN 30.1 UUG (27.0-31.0); MEAN CORPUSCULAR HGB CONC 33 g/dL (32.0-37.0); MEAN CORPUSCULAR VOLUME 90.4 FL (82.0-92.0); MONOCYTES % (AUTO) 11.7 % (0.0-11.0); PLATELET COUNT (AUTO) 52 K/UL (150-450)
[2019-08-12 07:07] LABS: BASOPHILS # (AUTO) 0.1 K/uL (0.0-8.0); EOSINOPHILS # (AUTO) 0.2 K/uL (0.0-0.7); LYMPHOCYTES # (AUTO) 3.3 K/UL (0.8-4.8); MONOCYTES # (AUTO) 0.8 K/UL (0.1-1.30); NEUTROPHILS # (AUTO) 2.8 K/UL (1.8-8.9)
[2019-08-12 08:46] LABS: CARBON DIOXIDE 30 mmol/L (21-32); CHLORIDE 109 mmol/L (98-107); GLUCOSE 93 mg/dL (74-106); POTASSIUM 4.3 mmol/L (3.5-5.1); UREA NITROGEN, BLOOD 26 mg/dL (7-18)
[2019-08-12 08:47] LABS: CREATININE 4.5 mg/dL (0.6-1.3); PHOSPHOROUS 3.6 mg/dL (2.5-4.9)
[2019-08-12 08:48] LABS: ALANINE AMINOTRANSFERASE 15 U/L (16-63); ALKALINE PHOSPHATASE 308 U/L (50-136); ASPARTATE AMINOTRANSFERASE 27 U/L (15-37); BILIRUBIN,TOTAL 0.4 mg/dL (0.2-1.0)
[2019-08-12 08:49] LABS: MAGNESIUM 1.9 mg/dL (1.8-2.4); TOTAL PROTEIN, SERUM 5.1 g/dL (6.4-8.2)
[2019-08-12] MEDS: DOXYCYCLINE HYCLATE IV 100 MG in IV DEXTROSE 5% 100 ML IV SCH (09:09)
[2019-08-12] MEDS: CALCIUM ACETATE 667 MG CAPSULE PO SCH ×3 (09:09→16:56)
[2019-08-12] MEDS: CLONIDINE HCL 0.1 MG TABLET PO SCH (09:10)
[2019-08-12] MEDS: FERROUS SULFATE 325 MG TABEC PO SCH (09:10)
[2019-08-12] MEDS: AMLODIPINE 10 MG TABLET PO SCH (09:10)
[2019-08-12] MEDS: FLUOXETINE HCL 20 MG CAPSULE PO SCH (09:11)
[2019-08-12] MEDS: ATENOLOL 50 MG TABLET PO SCH ×2 (09:11→16:55)
[2019-08-12] MEDS: Z GUARD REMEDY PASTE 57 GM TUBE TOP SCH (09:16)
[2019-08-12] MEDS ORDERED: ALPR0.5T PO (16:51)
[2019-08-12] MEDS ORDERED: HYDR-894 PO (16:51)
[2019-08-12] MEDS ORDERED: Calcium Acetate PO (16:51)
[2019-08-12] MEDS ORDERED: ACET325T53 PO (16:51)
[2019-08-12] MEDS ORDERED: PANT40TA2 PO (16:51)
[2019-08-12] MEDS ORDERED: SUCR1TAB PO (16:51)
[2019-08-12] MEDS ORDERED: MENT71OI TOP (16:51)
[2019-08-12] MEDS ORDERED: ACID1TAB4 PO (16:51)
[2019-08-12] MEDS ORDERED: ALBU2.5V7 NEB (16:51)
== END 2019-08-12 20:25 | DRG 326 ==
LOC: ER 23:47 → TELE-TD3 08-02 04:08 → CCU 08-02 09:53 → TELE3 08-04 05:45 → MEDSURG3 08-04 12:21 → TELE-TD3 08-05 07:50 → CCU 08-05 09:10 → TELE-TD3 08-07 17:43 → CCU 08-08 18:09 → TELE3 08-10 06:15 → TELE-TD3 08-10 07:08 → MEDSURG3 08-11 12:16 → TELE3 08-11 14:47
PROVIDERS: ADMIT Student in an Organized Health Care Education/Training Program; ATTEND Nurse Practitioner Acute Care
PROC: 30233N1 Transfusion of Nonautologous Red Blood Cells into Peripheral Vein, Percutaneous Approach (ICD-10-PCS; principal; 2019-08-02)
PROC: 0D7 Gastrointestinal System, Dilation (ICD-10-PCS; 2019-08-02)
PROC: 0DB98ZX Excision of Duodenum, Via Natural or Artificial Opening Endoscopic, Diagnostic (ICD-10-PCS; 2019-08-02)
PROC: 0DB68ZX Excision of Stomach, Via Natural or Artificial Opening Endoscopic, Diagnostic (ICD-10-PCS; 2019-08-02)
PROC: 5A1D70Z Performance of Urinary Filtration, Intermittent, Less than 6 Hours Per Day (ICD-10-PCS; 2019-08-02)
PROC: 06HY33Z Insertion of Infusion Device into Lower Vein, Percutaneous Approach (ICD-10-PCS; 2019-08-02)
PROC: 30233R1 Transfusion of Nonautologous Platelets into Peripheral Vein, Percutaneous Approach (ICD-10-PCS; 2019-08-02)
PROC: 0HBRXZZ Excision of Toe Nail, External Approach (ICD-10-PCS; 2019-08-06)
PROC: 0HBMXZX Excision of Right Foot Skin, External Approach, Diagnostic (ICD-10-PCS; 2019-08-08)
DX: K26.0 Acute duodenal ulcer with hemorrhage (principal); N18.6 End stage renal disease; A41.9 Sepsis, unspecified organism; E43 Unspecified severe protein-calorie malnutrition; R65.20 Severe sepsis without septic shock; D62 Acute posthemorrhagic anemia; K31.1 Adult hypertrophic pyloric stenosis; N39.0 Urinary tract infection, site not specified; I12.0 Hypertensive chronic kidney disease with stage 5 chronic kidney disease or end stage renal disease; Z16.23 Resistance to quinolones and fluoroquinolones; D68.59 Other primary thrombophilia; N13.30 Unspecified hydronephrosis; E87.2 Acidosis; J90 Pleural effusion, not elsewhere classified; J98.11 Atelectasis; R17 Unspecified jaundice; M84.48XA Pathological fracture, other site, initial encounter for fracture; Z99.2 Dependence on renal dialysis; E78.5 Hyperlipidemia, unspecified; Z91.15 Patient's noncompliance with renal dialysis; E87.5 Hyperkalemia; B96.89 Other specified bacterial agents as the cause of diseases classified elsewhere; R80.9 Proteinuria, unspecified; R31.29 Other microscopic hematuria; E11.22 Type 2 diabetes mellitus with diabetic chronic kidney disease; D69.59 Other secondary thrombocytopenia; D50.0 Iron deficiency anemia secondary to blood loss (chronic); R59.0 Localized enlarged lymph nodes; Z74.09 Other reduced mobility; B95.0 Streptococcus, group A, as the cause of diseases classified elsewhere; C43.71 Malignant melanoma of right lower limb, including hip; B35.1 Tinea unguium; N27.0 Small kidney, unilateral; Z86.73 Personal history of transient ischemic attack (TIA), and cerebral infarction without residual deficits; Z79.899 Other long term (current) drug therapy; Z85.6 Personal history of leukemia; Z92.21 Personal history of antineoplastic chemotherapy; C61 Malignant neoplasm of prostate
CPT/HCPCS: 36415; 70030-TC; 71045; 71250; 76700; 82105; 82378; 82747; 82784; 83550; 83605; 83615; 83690; 83735; 84100; 84155; 84165; 84403; 84443; 85014; 85018; 85025; 85610; 85730; 86334; 86706; 86803; 86850; 86900; 86901; 86920; 87040; 87046; 87086; 87340; 88342; 89055; 90937; 93005; 94664; A4217; A4663; C1726; C9113; G0378; J0171; J0696; J0885; J1170; J1610; J1815; J1940; J1956; J2354; J2765; J3010; J3370; J3430; J3490; J7030; J7050; J7060; P9016-BL; P9021; P9035-BL

== ENCOUNTER 2019-08-21 19:36 | Inpatient (IN) | payer MEDICARE ==
[~2019-08-21] VITALS: Ht 160 cm; Wt 65.3 kg
[~2019-08-21 19:36] MED LIST: ACET325T53 PO; ACID1TAB4 PO; ALBU2.5V7 NEB; ALPR0.5T PO; AMLO10TA7 PO; ATEN50TA PO; Calcium Acetate PO; FLUO20CA40 PO; HYDR-894 PO; MENT71OI TOP; PANT40TA2 PO; SUCR1TAB PO
[2019-08-21] MEDS ORDERED: PANTOPRAZOLE SODIUM IV 80 MG in IV DEXTROSE 5% 100 ML IV ONE ×2 (20:00→21:00)
[2019-08-21] MEDS ORDERED: PANTOPRAZOLE SODIUM IV 40 MG in IV DEXTROSE 5% 100 ML IV ONE (20:00)
--- NOTE | 2019-08-21 20:00 | NUR ---
Patient BIB private ambulance from [facility] for c/o GI bleed. Patient states he had x2 diarrhea with blood today. Denies abdominal pain,N/V at this time.
[2019-08-21] MEDS ORDERED: PROT946L PO (20:06)
[2019-08-21] MEDS ORDERED: VIT1TABL46 PO (20:06)
[2019-08-21] MEDS ORDERED: HYDR-4384 PO (20:06)
[2019-08-21 20:27] LABS: BASOPHILS # (AUTO) 0.1 K/uL (0.0-8.0); BASOPHILS % (AUTO) 0.7 % (0.0-2.0); EOSINOPHILS # (AUTO) 0.2 K/uL (0.0-0.7); MEAN CORPUSCULAR HEMOGLOBIN 30.6 uug (23.8-33.4); MEAN CORPUSCULAR HGB CONC 34 g/dL (32.5-36.3); WHITE BLOOD COUNT (AUTO) 9.2 K/uL (3.6-10.2)
[2019-08-21 20:30] LABS: ALANINE AMINOTRANSFERASE 14 U/L (16-63); ALKALINE PHOSPHATASE 324 U/L (50-136); ASPARTATE AMINOTRANSFERASE 30 U/L (15-37); BILIRUBIN,DIRECT 0.1 mg/dL (0.0-0.2); BILIRUBIN,TOTAL 0.4 mg/dL (0.2-1.0); CARBON DIOXIDE 32 mmol/L (21-32); CHLORIDE 99 mmol/L (98-107); CREATININE 4.9 mg/dL (0.6-1.3); GLUCOSE 116 mg/dL (74-106); LIPASE 166 U/L (73-393); POTASSIUM 4.2 mmol/L (3.5-5.1); TOTAL PROTEIN, SERUM 4.8 g/dL (6.4-8.2); UREA NITROGEN, BLOOD 47 mg/dL (7-18)
[2019-08-21] MEDS ORDERED: PANTOPRAZOLE SODIUM 40 MG VIAL ONE (20:30)
[2019-08-21 20:37] LABS: LYMPHOCYTES % (AUTO) 54.4 % (20.5-51.5); MEAN CORPUSCULAR VOLUME 90.2 fL (73.0-96.2); MONOCYTES # (AUTO) 0.9 K/uL (2.0-10.0); MONOCYTES % (AUTO) 10.3 % (0.0-11.0); NEUTROPHILS % (AUTO) 32.6 % (38.5-71.5); PLATELET COUNT (AUTO) 75 K/uL (152-348)
[2019-08-21 20:38] LABS: RED BLOOD CELL COUNT(AUTO) 1.61 MIL/uL (4.06-5.63)
[2019-08-21 20:39] LABS: HEMATOCRIT 14.5 % (36.7-47.1); HEMOGLOBIN 4.9 g/dL (12.5-16.3)
--- NOTE | 2019-08-21 20:51 | NUR ---
Dr Gutierrez spoke with Dr Lucas for GI consult.
--- NOTE | 2019-08-21 20:52 | NUR ---
Dr Gutierrez speaking with Magy cushion cover inspector Reji CHAMORRO
[2019-08-21] MEDS ORDERED: MAGNESIUM HYDROXIDE 30 ML LIQUID UDC PO PRN (21:00)
[2019-08-21] MEDS ORDERED: Z GUARD REMEDY PASTE 57 GM TUBE TOP PRN (21:00)
[2019-08-21] MEDS ORDERED: ACETAMINOPHEN 325 MG TABLET PO PRN (21:00)
[2019-08-21] MEDS ORDERED: HYDROCODONE/APAP 5-325MG TABLET PO PRN (21:00)
[2019-08-21] MEDS ORDERED: ONDANSETRON 4 MG/2 ML VIAL IV PRN (21:00)
[2019-08-21 21:19] LABS: BAND % (MANUAL) 3 % (0-10); LYMPHOCYTES % (MANUAL) 60 % (20-40); NEUTROPHILS % (MANUAL) 31 % (42-75)
[2019-08-21 21:20] LABS: METAMYELOCYTES % 2 % (0-1); MONOCYTES % (MANUAL) 4 % (2-10)
--- NOTE | 2019-08-21 22:10 | NUR ---
Started 1st unit of PRBC at this time.
--- NOTE | 2019-08-21 22:30 | NUR ---
Patient tolerating blood transfusion. No reaction noted.
--- NOTE | 2019-08-21 22:46 | NUR ---
Transfer patient to CCU with PRBC infusing. No distress noted.
[2019-08-21] MEDS: PANTOPRAZOLE SODIUM 40 MG VIAL IV SCH (23:45)
[2019-08-22] VITALS (31 sets, daily range): BP systolic 102–157; BP diastolic 36–79
--- NOTE | 2019-08-22 | NUR ---
called kathleen etienne to report color and consistency of the stool of the patinet ,. no further order given
--- NOTE | 2019-08-22 01:00 | NUR ---
Understands anatomy and physiology * Describes reportable s/s * Understands treatment plan * Understands medication regime Addendum: 08/22/19 at 0307 by BRANDIE CLAYTON RN Amended: Links added.
--- NOTE | 2019-08-22 01:00 | NUR ---
daily x 90 day Addendum: 08/22/19 at 0306 by BRANDIE CLAYTON RN Amended: Boris reyes. Addendum: 08/22/19 at 0307 by BRANDIE CLAYTON RN Amended: Boris reyes.
[2019-08-22] MEDS ORDERED: PANTOPRAZOLE SODIUM 40 MG VIAL ONE (01:01)
[2019-08-22 05:00] LABS: EOSINOPHILS # (AUTO) 0.2 K/uL (0.0-0.7); LYMPHOCYTES # (AUTO) 4.1 K/uL (20.0-40.0); MEAN CORPUSCULAR VOLUME 86.2 fL (73.0-96.2); MONOCYTES # (AUTO) 0.9 K/uL (2.0-10.0)
[2019-08-22 05:01] LABS: BASOPHILS # (AUTO) 0.1 K/uL (0.0-8.0); BASOPHILS % (AUTO) 0.7 % (0.0-2.0); EOSINOPHILS % (AUTO) 2.1 % (0.0-7.0); LYMPHOCYTES % (AUTO) 49.8 % (20.5-51.5); MEAN CORPUSCULAR HEMOGLOBIN 28.8 uug (23.8-33.4); MEAN CORPUSCULAR HGB CONC 33 g/dL (32.5-36.3); MONOCYTES % (AUTO) 11.3 % (0.0-11.0); NEUTROPHILS # (AUTO) 2.9 K/uL (1.8-8.9); NEUTROPHILS % (AUTO) 36.1 % (38.5-71.5); PLATELET COUNT (AUTO) 58 K/uL (152-348); WHITE BLOOD COUNT (AUTO) 8.1 K/uL (3.6-10.2)
[2019-08-22 05:06] LABS: CARBON DIOXIDE 30 mmol/L (21-32); CHLORIDE 101 mmol/L (98-107); CREATININE 5.1 mg/dL (0.6-1.3); GLUCOSE 91 mg/dL (74-106); MAGNESIUM 1.9 mg/dL (1.8-2.4); PHOSPHOROUS 3.1 mg/dL (2.5-4.9); POTASSIUM 4.2 mmol/L (3.5-5.1); UREA NITROGEN, BLOOD 54 mg/dL (7-18)
[2019-08-22 05:26] LABS: RED BLOOD CELL COUNT(AUTO) 2.26 MIL/uL (4.06-5.63)
[2019-08-22 05:27] LABS: HEMATOCRIT 19.5 % (36.7-47.1); HEMOGLOBIN 6.5 g/dL (12.5-16.3)
[2019-08-22 06:08] LABS: LYMPHOCYTES % (MANUAL) 53 % (20-40); MONOCYTES % (MANUAL) 7 % (2-10); NEUTROPHILS % (MANUAL) 40 % (42-75)
[2019-08-22] MEDS ORDERED: ACETAMINOPHEN 650 MG SUPP.RECT RC PRN (09:15)
[2019-08-22] MEDS ORDERED: MORPHINE SULFATE 2 MG/1 ML DISP.SYRIN IV PRN (09:15)
[2019-08-22] MEDS: PANTOPRAZOLE SODIUM 40 MG VIAL IV SCH ×2 (09:22→21:10)
--- NOTE | 2019-08-22 09:30 | NUR ---
Nephrology services, Dr. Dutta in the unit to see and examine patient, report given see order hx.
--- NOTE | 2019-08-22 18:08 | NUR ---
Attending physician Dr. Taylor in the unit to see and examine patient, full report given see orders hx.
--- NOTE | 2019-08-22 18:10 | NUR ---
patient resting in bed, no distress noted, hemodynamically stable, afebrile, On 2L NC with saturation within desired limits. alaniz to gravity, Awaiting HD. Placed on 1st step-mattress and received a total of 2 PRBC's with one of platelets. As ordered by attending MD. to be follow up with am labs. Patient remains NPO. Will continue with care plan.
[2019-08-23] VITALS (38 sets, daily range): BP systolic 112–173; BP diastolic 39–84
--- NOTE | 2019-08-23 | NUR ---
TOLERATED HD WELL, 1500, REMOVED.VSS
[2019-08-23 05:14] LABS: ALANINE AMINOTRANSFERASE 13 U/L (16-63); ALKALINE PHOSPHATASE 307 U/L (50-136); ASPARTATE AMINOTRANSFERASE 32 U/L (15-37); BILIRUBIN,TOTAL 0.3 mg/dL (0.2-1.0); CARBON DIOXIDE 30 mmol/L (21-32); CHLORIDE 107 mmol/L (98-107); GLUCOSE 71 mg/dL (74-106); MAGNESIUM 1.9 mg/dL (1.8-2.4); PHOSPHOROUS 3.3 mg/dL (2.5-4.9); POTASSIUM 3.9 mmol/L (3.5-5.1); TOTAL PROTEIN, SERUM 4.5 g/dL (6.4-8.2); UREA NITROGEN, BLOOD 45 mg/dL (7-18)
[2019-08-23 05:17] LABS: EOSINOPHILS # (AUTO) 0.2 K/uL (0.0-0.7); MONOCYTES # (AUTO) 0.8 K/uL (2.0-10.0)
[2019-08-23 05:18] LABS: BASOPHILS % (AUTO) 0.6 % (0.0-2.0); LYMPHOCYTES # (AUTO) 3.1 K/uL (20.0-40.0); LYMPHOCYTES % (AUTO) 45.7 % (20.5-51.5); MEAN CORPUSCULAR HEMOGLOBIN 29.3 uug (23.8-33.4); MEAN CORPUSCULAR HGB CONC 34 g/dL (32.5-36.3); MEAN CORPUSCULAR VOLUME 86.7 fL (73.0-96.2); MONOCYTES % (AUTO) 12.1 % (0.0-11.0); NEUTROPHILS # (AUTO) 2.6 K/uL (1.8-8.9); NEUTROPHILS % (AUTO) 38.6 % (38.5-71.5); PLATELET COUNT (AUTO) 89 K/uL (152-348); WHITE BLOOD COUNT (AUTO) 6.8 K/uL (3.6-10.2)
[2019-08-23 05:33] LABS: RED BLOOD CELL COUNT(AUTO) 2.01 MIL/uL (4.06-5.63)
[2019-08-23 05:35] LABS: HEMATOCRIT 17.4 % (36.7-47.1); HEMOGLOBIN 5.9 g/dL (12.5-16.3)
[2019-08-23 06:16] LABS: EOSINOPHILS % (MANUAL) 4 % (0-8); LYMPHOCYTES % (MANUAL) 48 % (20-40); MONOCYTES % (MANUAL) 11 % (2-10); NEUTROPHILS % (MANUAL) 37 % (42-75)
[2019-08-23] MEDS: PANTOPRAZOLE SODIUM 40 MG VIAL IV SCH ×2 (08:02→21:10)
--- NOTE | 2019-08-23 08:53 | NUR ---
nephrology services, Dr. Richard in the unit to see and examine patient, report given, low hgb discussed with Md no new orders received.
--- NOTE | 2019-08-23 10:17 | NUR ---
Pt. back on 2L NC saturation above 95%, but as stated by patient "I feel like I need oxygen".
[2019-08-24] VITALS (26 sets, daily range): BP systolic 132–159; BP diastolic 48–96
--- NOTE | 2019-08-24 04:30 | NUR ---
Patient noted with audible expiratory wheezing, tachpneic, labored respirations and mild restlessness. BBS diminished with wheezes on auscultation. Call placed to the epic group; Carli COOLEY return call. Updated on the patient's condition. Orders received from one time treatment of Albuterol. CLUTCH OPERATOR called and made aware.
[2019-08-24] MEDS ORDERED: ALBUTEROL SULFATE 2.5 MG/3 ML NEBU NEB ONE (05:00)
[2019-08-24 05:45] LABS: BASOPHILS # (AUTO) 0.1 K/uL (0.0-8.0); BASOPHILS % (AUTO) 0.7 % (0.0-2.0); EOSINOPHILS # (AUTO) 0.2 K/uL (0.0-0.7); HEMATOCRIT 26.7 % (36.7-47.1); HEMOGLOBIN 9.3 g/dL (12.5-16.3); LYMPHOCYTES # (AUTO) 3.2 K/uL (20.0-40.0); LYMPHOCYTES % (AUTO) 39.2 % (20.5-51.5); MEAN CORPUSCULAR HEMOGLOBIN 30.7 uug (23.8-33.4); MEAN CORPUSCULAR HGB CONC 35 g/dL (32.5-36.3); MEAN CORPUSCULAR VOLUME 88.5 fL (73.0-96.2); MONOCYTES # (AUTO) 0.9 K/uL (2.0-10.0); MONOCYTES % (AUTO) 11.3 % (0.0-11.0); NEUTROPHILS # (AUTO) 3.7 K/uL (1.8-8.9); NEUTROPHILS % (AUTO) 45.8 % (38.5-71.5); PLATELET COUNT (AUTO) 83 K/uL (152-348); RED BLOOD CELL COUNT(AUTO) 3.01 MIL/uL (4.06-5.63); WHITE BLOOD COUNT (AUTO) 8.1 K/uL (3.6-10.2)
[2019-08-24 06:12] LABS: ALANINE AMINOTRANSFERASE 18 U/L (16-63); ALKALINE PHOSPHATASE 323 U/L (50-136); ASPARTATE AMINOTRANSFERASE 39 U/L (15-37); BILIRUBIN,TOTAL 0.7 mg/dL (0.2-1.0); CARBON DIOXIDE 25 mmol/L (21-32); CHLORIDE 102 mmol/L (98-107); CREATININE 5.1 mg/dL (0.6-1.3); GLUCOSE 70 mg/dL (74-106); PHOSPHOROUS 4.5 mg/dL (2.5-4.9); POTASSIUM 3.9 mmol/L (3.5-5.1); TOTAL PROTEIN, SERUM 5.6 g/dL (6.4-8.2); UREA NITROGEN, BLOOD 57 mg/dL (7-18)
[2019-08-24] MEDS: PANTOPRAZOLE SODIUM 40 MG VIAL IV SCH ×2 (08:32→22:20)
--- NOTE | 2019-08-24 08:33 | NUR ---
moaning and appears anxious. asking for o2 mask. o2 at present on 2 liters nasal cannula. o2 sat 100%. lungs diminished breath sounds with occasional expiratory wheezing right base. medicated for left ankle pain. Addendum: 08/24/19 at 14 by RUDY BANKS RN Amended: Links added. Addendum: 08/24/19 at 15 by RUDY BANKS RN Amended: Links added.
--- NOTE | 2019-08-24 09:00 | NUR ---
manjit Ning at the bedside. updated with patient's condition. patient is NPO but allowed ice chips Addendum: 08/24/19 at 916 by RUDY BANKS RN Amended: Links added. Addendum: 08/24/19 at 916 by RUDY BANKS RN Amended: Links added.
--- NOTE | 2019-08-24 12:34 | NUR ---
hemodialysis initiated. Gina Selby here and checked patient's labs Addendum: 08/24/19 at 1234 by RUDY BANKS RN Amended: Links added.
[2019-08-24 13:25] LABS: HEPATITIS B SURFACE AB Non Reactive (.)
--- NOTE | 2019-08-24 14:44 | NUR ---
hemodialysis completed. 3l of fluid removed. patient feeling better. Addendum: 08/24/19 at 1444 by RUDY BANKS RN Amended: Links added.
--- NOTE | 2019-08-24 16:52 | NUR ---
seen by dr Willson Hematology. orders received Addendum: 08/24/19 at 1652 by RUDY BANKS RN Amended: Links added.
--- NOTE | 2019-08-24 19:21 | NUR ---
Bedside report given to Tasha Addendum: 08/24/19 at 1922 by RUDY BANKS RN Amended: Links added.
[2019-08-25] VITALS (13 sets, daily range): BP systolic 128–167; BP diastolic 50–94
[2019-08-25 05:05] LABS: BASOPHILS # (AUTO) 0.1 K/uL (0.0-8.0); BASOPHILS % (AUTO) 0.7 % (0.0-2.0); EOSINOPHILS # (AUTO) 0.3 K/uL (0.0-0.7); EOSINOPHILS % (AUTO) 3.1 % (0.0-7.0); HEMATOCRIT 27.6 % (36.7-47.1); HEMOGLOBIN 9.4 g/dL (12.5-16.3); LYMPHOCYTES % (AUTO) 42.8 % (20.5-51.5); MEAN CORPUSCULAR HEMOGLOBIN 30.1 uug (23.8-33.4); MEAN CORPUSCULAR HGB CONC 34 g/dL (32.5-36.3); MEAN CORPUSCULAR VOLUME 88.4 fL (73.0-96.2); MONOCYTES # (AUTO) 1.1 K/uL (2.0-10.0); MONOCYTES % (AUTO) 11.6 % (0.0-11.0); NEUTROPHILS # (AUTO) 3.9 K/uL (1.8-8.9); NEUTROPHILS % (AUTO) 41.8 % (38.5-71.5); PLATELET COUNT (AUTO) 77 K/uL (152-348); RED BLOOD CELL COUNT(AUTO) 3.13 MIL/uL (4.06-5.63); WHITE BLOOD COUNT (AUTO) 9.3 K/uL (3.6-10.2)
[2019-08-25 05:49] LABS: IRON, SERUM 65 ug/dL (50-175)
[2019-08-25 06:24] LABS: CARBON DIOXIDE 25 mmol/L (21-32); CHLORIDE 104 mmol/L (98-107); CREATININE 4.6 mg/dL (0.6-1.3); FERRITIN 1600 ng/mL (26-388); GLUCOSE 65 mg/dL (74-106); MAGNESIUM 2.1 mg/dL (1.8-2.4); PHOSPHOROUS 3.8 mg/dL (2.5-4.9); POTASSIUM 3.8 mmol/L (3.5-5.1); UREA NITROGEN, BLOOD 48 mg/dL (7-18)
--- NOTE | 2019-08-25 08:43 | NUR ---
Pt transferred to room 305 via bed.Report given to JERRY Booth.Pt joseline Cordero at bedside updated on pt plan of care.
--- NOTE | 2019-08-25 09:00 | NUR ---
RECEIVED PT VIA BED. PT AWAKE. PT CONGOLESE SPEAKING. PT ALERT AND ORIENTED X3. NO ACUTE DISTRESS OR SOB NOTED. PT ON 1L/M O2 VIA N/C WITH SATS OF 100%. WILL EVALUATE STS IN ORDER TO STOP SUPPLEMENTAL O2 ADMINISTRATION. PT DENIES PAIN AT THIS TIME. VS STABLE. PT ON TELEMETRY MONITORING WITH SINUS RHYTHM. MCCANN CATHETER IN PLACE WITH YELLOW CLEAR URINE. PT HAS A CENTRAL LINE IN LEFT GROIN FLUSHED AND PATENT. WILL CONTINUE TO MONITOR.
[2019-08-25] MEDS: PANTOPRAZOLE SODIUM 40 MG VIAL IV SCH ×2 (09:27→20:50)
--- NOTE | 2019-08-25 12:05 | NUR ---
PT RESTING COMFORTABLY IN BED. NO SIGNS OF ACUTE DISTRESS OR SOB NOTED. CALL LIGHT WITHIN REACH. BED LOCKED AND IN LOW POSITION. PT DENIES PAIN AT THIS TIME. WILL CONTINUE TO MONITOR.
--- NOTE | 2019-08-25 16:00 | NUR ---
DR AG ORDERED DC NPO. BEGIN STANDARD RENAL DIET.
--- NOTE | 2019-08-25 18:00 | NUR ---
PT RESTING COMFORTABLY IN BED. NO SIGNS OF ACUTE DISTRESS OR SOB. PT ATE STANDARD RENAL DIET TOLERATED WELL. BED LOCKED AND IN LOW POSITION. NO NEW ORDERS RECEIVED FROM DR EASLEY OR DR. AG. WILL GIVE REPORT TO INCOMING SHIFT ACCORDINGLY.
[2019-08-26 00:44] VITALS: BP 145/67
[2019-08-26 05:35] VITALS: BP 154/74
--- NOTE | 2019-08-26 06:45 | NUR ---
Patient slept well through out the night. No complaints of pain, no SOB noted. Central line on R groin intact and patent. F/C intact draining clear yellow urine. All needs attended. Will endorse accordingly
--- NOTE | 2019-08-26 07:10 | NUR ---
RECEIVED PATIENT IN BED AWAKE, ALERT AND ORIENTED X3 WITH HOB ELEVATED. NO ACUTE DISTRESS OR SOB NOTED AT THIS TIME , NO C/O PAIN AT THIS TIME. PATIENT MCCANN CATHETER AND HAS A CENTRAL LINE IN LEFT GROIN FLUSHED AND PATENT. WILL CONTINUE TO MONITOR.
[2019-08-26] MEDS: PANTOPRAZOLE SODIUM 40 MG VIAL IV SCH ×2 (08:28→20:09)
[2019-08-26 11:33] VITALS: BP 147/72
--- NOTE | 2019-08-26 15:00 | NUR ---
HAD DIALYSIS TAKEN 2500
[2019-08-26 15:34] VITALS: BP 153/78
--- NOTE | 2019-08-26 18:57 | NUR ---
PATIENT IN BED AWAKE, ALERT AND ORIENTED X3 WITH HOB ELEVATED. NO ACUTE DISTRESS OR SOB NOTED AT THIS TIME , NO C/O PAIN AT THIS TIME. PATIENT MCCANN CATHETER AND HAS A CENTRAL LINE IN LEFT GROIN FLUSHED AND PATENT. KE[T CLEAN AND DRY AT ALL TIMES. WILL CONTINUE TO MONITOR.
[2019-08-26 19:56] VITALS: BP 146/64
[2019-08-27 04:50] VITALS: BP 150/75
--- NOTE | 2019-08-27 06:42 | NUR ---
Patient slept well through out the night. No SOB noted. No c/o pain at this time. Central line on R groin intact and patent. All needs attended. Will endorse accordingly
--- NOTE | 2019-08-27 07:10 | NUR ---
RECEIVED PATIENT RESTING IN BED, AWAKE AND ALERT. NO ACUTE DISTRESS NOTED. PATIENT DENIES PAIN AND DISCOMFORT. BED IN LOWEST POSITION, SIDE RAILS UP X2, CALL LIGHT WITHIN REACH. WILL CONTINUE TO MONITOR.
[2019-08-27] MEDS: PANTOPRAZOLE SODIUM 40 MG VIAL IV SCH (08:23)
[2019-08-27 09:48] LABS: BASOPHILS # (AUTO) 0.1 K/uL (0.0-8.0); BASOPHILS % (AUTO) 0.8 % (0.0-2.0); EOSINOPHILS # (AUTO) 0.3 K/uL (0.0-0.7); EOSINOPHILS % (AUTO) 4.1 % (0.0-7.0); HEMATOCRIT 28.4 % (36.7-47.1); HEMOGLOBIN 9.7 g/dL (12.5-16.3); LYMPHOCYTES # (AUTO) 3.3 K/uL (20.0-40.0); MEAN CORPUSCULAR HEMOGLOBIN 30.9 uug (23.8-33.4); MEAN CORPUSCULAR HGB CONC 34 g/dL (32.5-36.3); MEAN CORPUSCULAR VOLUME 90.8 fL (73.0-96.2); MONOCYTES % (AUTO) 13.4 % (0.0-11.0); NEUTROPHILS # (AUTO) 2.7 K/uL (1.8-8.9); NEUTROPHILS % (AUTO) 36.7 % (38.5-71.5); PLATELET COUNT (AUTO) 54 K/uL (152-348); RED BLOOD CELL COUNT(AUTO) 3.13 MIL/uL (4.06-5.63); WHITE BLOOD COUNT (AUTO) 7.4 K/uL (3.6-10.2)
[2019-08-27 10:50] LABS: EOSINOPHILS % (MANUAL) 4 % (0-8); LYMPHOCYTES % (MANUAL) 55 % (20-40); MONOCYTES % (MANUAL) 7 % (2-10); NEUTROPHILS % (MANUAL) 34 % (42-75)
[2019-08-27 11:11] VITALS: BP 139/69
[2019-08-27 15:19] VITALS: BP 142/72
[2019-08-27] MEDS: PANTOPRAZOLE SODIUM 40 MG TABLET.DR PO SCH (16:30)
--- NOTE | 2019-08-27 18:12 | NUR ---
PATIENT RESTED INTERMITTENTLY THROUGHOUT DAY. PATIENT DENIED PAIN AND DISCOMFORT. PATIENT SEEN BY MD AND PLAN IS TO D/C TOMORROW. SAFETY MEASURES PROVIDED. WILL ENDORSE TO ONCOMING NURSE.
--- NOTE | 2019-08-27 19:45 | NUR ---
PATIENT ALERT SPEAK [place]ONG KONGER BUT UNDERSTAND HUNGARIAN. PATIENT ON TELE MONITOR SINUS RHYTHM AT THIS TIME. L AV SHUNT HAS NO BLEEDING NOTED, R GROIN CENTRAL LINE INTACT, DRESSING INTACT. PATIENT HAS NO COMPLAIN OF PAIN AT THIS TIME. OXYGEN SAT WNL NO SOBO NO CHEST PAIN, CONT TO MONITOR.
[2019-08-27 20:30] VITALS: BP 143/54
[2019-08-28 05:57] VITALS: BP 132/64
--- NOTE | 2019-08-28 06:01 | NUR ---
PATIENT ALERT ORIENTED, SPEAK TURKISH, NO SOB NO CHEST PAIN NOTED. PATIENT HAS NO COMPLAIN OF PAIN. PATIENT SLEPT MOST OF THE NIGHT, PATIENT MCCANN DRAINING WITH YELLOW COLOR URINE IN MODERATE AMOUNT, CONT TO MONITOR.
[2019-08-28] MEDS: PANTOPRAZOLE SODIUM 40 MG TABLET.DR PO SCH ×2 (06:31→17:16)
--- NOTE | 2019-08-28 07:15 | NUR ---
RECEIVED PATIENT SLEEPING IN BED. NO ACUTE DISTRESS NOTED. BED IN LOWEST POSITION, SIDE RAILS UP X2, CALL LIGHT WITHIN REACH. WILL CONTINUE TO MONITOR.
--- NOTE | 2019-08-28 11:00 | NUR ---
called Dr Darrell Quintero office and left message to Mauro
[2019-08-28 11:03] VITALS: BP 141/53
[2019-08-28 15:04] VITALS: BP 137/63
--- NOTE | 2019-08-28 18:20 | NUR ---
Patient is in bed, alert and verbally responsive. Patient is scottish speaking. Can make needs known. Patient has no acute distress. Patient has no complaints of pain at this time. Received meds and tolerated well. Has alaniz catheter intact and draining clear yellow urine. Left AV shunt with no S/S complications or bleeding. Will endorse to following shift for continuity of care.
--- NOTE | 2019-08-28 20:00 | NUR ---
AWAKE,ALERTX3,ICE CHIPS REQUESTED. VISITOR AT BEDSIDE,RESTING COMFORTABLY.NO COMPLAINTS MADE,NO NAUSEA OR VOMITING NOTED,LEFT FOOT LESION .OPEN TO AIR .
[2019-08-28 21:06] VITALS: BP 146/73
[2019-08-29 05:00] VITALS: BP 133/63
[2019-08-29] MEDS: PANTOPRAZOLE SODIUM 40 MG TABLET.DR PO SCH ×2 (07:47→17:28)
--- NOTE | 2019-08-29 08:00 | NUR ---
RECEIVED PT RESTING COMFORTABLY IN BED. NO ACUTE DISTRESS OR SOB NOTED. PT DENIES PAIN AT THIS TIME. CALL LIGHT WITHIN REACH. BED LOCKED AND IN LOW POSITION. WILL CONTINUE TO MONITOR.
[2019-08-29 08:39] LABS: IRON, SERUM 44 ug/dL (50-175)
[2019-08-29 08:48] LABS: FERRITIN 1666 ng/mL (26-388)
[2019-08-29 11:30] VITALS: BP 150/82
[2019-08-29 15:35] VITALS: BP 137/67
--- NOTE | 2019-08-29 18:00 | NUR ---
DISCHARGE ORDER RECEIVED. PT ALERT AND ORIENTED X3. NO ACUTE DISTRESS OR SOB NOTED. DISCHARGE PAPERWORK AND INSTRUCTIONS FINALIZED. PT HAS CENTRAL LINE AND MCCANN CATHETER. WILL GIVE REPORT ACCORDINGLY TO INCOMING SHIFT NURSE.
[2019-08-29 19:36] VITALS: BP 150/77
[2019-08-30 05:40] VITALS: BP 147/68
--- NOTE | 2019-08-30 05:55 | NUR ---
patient slept intermittently. no signs of acute distress and v/s stable throughout shift. safety and comfort measures provided at times. will continue to monitor and endorse accordingly.
[2019-08-30] MEDS: PANTOPRAZOLE SODIUM 40 MG TABLET.DR PO SCH ×2 (06:04→17:46)
--- NOTE | 2019-08-30 08:00 | NUR ---
RECEIVED PT RESTING IN BED. PT ALERT AND ORIENTED X3. NO SIGNS OF ACUTE DISTRESS OR SOB. BED LOCKED AND IN LOW POSITION. CALL LIGHT WITHIN REACH. CENTRAL LINE PATENT AND FLUSHED. MCCANN CATHETER. WILL CONTINUE TO MONITOR FOR COMFORT AND SAFETY.
--- NOTE | 2019-08-30 09:00 | NUR ---
PT TO BE DISCHARGED HOME. WILL REMOVE MCCANN CATHETER AND CENTRAL LINE.
[2019-08-30 11:18] VITALS: BP 139/64
--- NOTE | 2019-08-30 12:20 | NUR ---
GROIN PICC LINE REMOVED INTACT WITHOUT INCIDENT BY CHARGE NURSE. PRESSURE APPLIED FOR 5 MINUTED NO BLEEDING. 2X2 APPLIED. WILL CONTINUE TO ASSESS. MCCANN CATHETER TO REMAIN PATIENT STATES NEEDING CATHETER IN ORDER TO VOID. PT AND FAMILY STATE THAT PATIENT HAS A LEG BAG WHICH PATIENT CHANGES WHEN NEEDED. ADVISED OF THE RISKS OF UTI WITH GOOD COMPREHENSION. PT AND FAMILY DECIDED TO HAVE PT DISCHARGED HOME. WILL PROCEED WITH UPDATE TO DISCHARGE DOCS AND INSTRUCTIONS.
[2019-08-30 15:49] VITALS: BP 127/61
--- NOTE | 2019-08-30 18:00 | NUR ---
DISCHARGE INSTRUCTIONS GIVEN TO PATIENT WITH GOOD UNDERSTANDING. BELONGINGS LIST SIGNED. BELONGINGS RETURNED. NO ACUTE DISTRESS OR SOB NOTE. MCCANN LEG BAG TO BE PLACED BY INCOMING SHIFT NURSE. WILL ENDORSE ACCORDINGLY.
[2019-08-30 20:00] VITALS: BP 154/76
--- NOTE | 2019-08-30 22:05 | NUR ---
patient was successfully discharged in stable condition with all belongings. patient was escorted out via wheelchair by SPRING FLOOR SERVICE WORKER, and son. VS stable. patient instructions and discharge instructions given by am nurse. made sure the had no further questions. per family and patient had no further questions and verbalized understanding. name band taken off, picc line removed by am nurse. patient discharged in stable condition.
== END 2019-08-30 23:00 | disposition home or self-care (01) | DRG 377 ==
LOC: ER 19:38 → CCU 22:28 → TELE3 08-25 09:00 → MEDSURG3 08-26 08:25
PROVIDERS: ADMIT Nurse Practitioner Acute Care; ATTEND Nurse Practitioner Acute Care
PROC: 30233N1 Transfusion of Nonautologous Red Blood Cells into Peripheral Vein, Percutaneous Approach (ICD-10-PCS; principal; 2019-08-21)
PROC: 5A1D70Z Performance of Urinary Filtration, Intermittent, Less than 6 Hours Per Day (ICD-10-PCS; 2019-08-22)
PROC: 30243R1 Transfusion of Nonautologous Platelets into Central Vein, Percutaneous Approach (ICD-10-PCS; 2019-08-22)
PROC: 30243K1 Transfusion of Nonautologous Frozen Plasma into Central Vein, Percutaneous Approach (ICD-10-PCS; 2019-08-23)
DX: K26.4 Chronic or unspecified duodenal ulcer with hemorrhage (principal); N18.6 End stage renal disease; E43 Unspecified severe protein-calorie malnutrition; D62 Acute posthemorrhagic anemia; I12.0 Hypertensive chronic kidney disease with stage 5 chronic kidney disease or end stage renal disease; M84.48XA Pathological fracture, other site, initial encounter for fracture; J90 Pleural effusion, not elsewhere classified; N13.30 Unspecified hydronephrosis; E78.5 Hyperlipidemia, unspecified; Z68.27 Body mass index [BMI] 27.0-27.9, adult; E11.22 Type 2 diabetes mellitus with diabetic chronic kidney disease; L98.8 Other specified disorders of the skin and subcutaneous tissue; C61 Malignant neoplasm of prostate; R59.9 Enlarged lymph nodes, unspecified; Z85.6 Personal history of leukemia; Z92.21 Personal history of antineoplastic chemotherapy; Z99.2 Dependence on renal dialysis; Z79.899 Other long term (current) drug therapy; N27.0 Small kidney, unilateral; D69.59 Other secondary thrombocytopenia; B35.1 Tinea unguium
CPT/HCPCS: 36415; 70030-TC; 71045; 83550; 83605; 83690; 83735; 84100; 85025; 85610; 85730; 86704; 86705; 86706; 86850; 86900; 86901; 86920; 90937; 93005; 94664; A4663; C9113; G0378; J2270; J2405; J3490; J7050; J7060; P9016-BL; P9017-BL; P9021; P9035-BL